=== PATIENT | male | born 1960 | race Caucasian/White ===

== ENCOUNTER 2024-07-22 08:57 | Emergency (ER) | payer OTHER ==
[~2024-07-22] VITALS: Ht 167.6 cm; Wt 64.4 kg
[2024-07-22 09:03] VITALS: BP 170/96; TEMP 98; O2SAT 98
== END 2024-07-22 09:45 | disposition home or self-care (01) ==
LOC: ER 09:02
DX: R04.0 Epistaxis (principal); Z60.2 Problems related to living alone